=== PATIENT | male | born 1980 | race Caucasian/White ===

== ENCOUNTER 2020-06-28 15:48 | Emergency (ER) | payer SELFPAY ==
[~2020-06-28] VITALS: Ht 177.8 cm; Wt 100.0 kg
[2020-06-28 16:41] VITALS: BP 154/102
[2020-06-28] MEDS ORDERED: ALBU2.5V8 INH (16:44)
[2020-06-28] MEDS ORDERED: IPRA3AMP29 NEB (16:44)
--- NOTE | 2020-06-28 16:44 | PHYS DOC ---
General Adult EDM: Chief Complaint: MEDICATION REFILL HPI: HPI: Patient is a 40 year old male who presents with his staying at near rehab center and he needs a prescription for his albuterol nebulized treatment so he can take his treatments. He states they will not let him take his breathing treatments if he does not have a prescription for. He also would like a prescription for inhaler. He states currently he has no shortness of breath, chest pain, fever, cough, abdominal pain, nausea, vomiting, diarrhea, dizziness, headache. He denies any pain. Does have a history of asthma. Review of Systems: Review of Systems: Constitutional: Denies fever or chills. [] Eyes: Denies change in visual acuity. [] HENT: Denies nasal congestion or sore throat. [] Respiratory: Denies cough or shortness of breath. Needing prescription for asthma medication. [] Cardiovascular: Denies chest pain or edema. [] GI: Denies abdominal pain, nausea, vomiting, bloody stools or diarrhea. [] : Denies dysuria. [] Musculoskeletal: Denies back pain or joint pain. [] Integument: Denies rash. [] Neurologic: Denies headache, focal weakness or sensory changes. [] Endocrine: Denies polyuria or polydipsia. [] Lymphatic: Denies swollen glands. [] Psychiatric: Denies depression or anxiety. [] Heart Score: Risk Factors: Risk Factors: DM, Current or recent (<one month) smoker, HTN, HLP, family history of CAD, obesity. Risk Scores: Score 0 - 3: 2.5% MACE over next 6 weeks - Discharge Home Score 4 - 6: 20.3% MACE over next 6 weeks - Admit for Clinical Observation Score 7 - 10: 72.7% MACE over next 6 weeks - Early Invasive Strategies Physical Exam: PE: Constitutional: Well developed, well nourished, no acute distress, non-toxic appearance. [] HENT: Normocephalic, atraumatic, bilateral external ears normal, oropharynx moist, no oral exudates, nose normal. [] Eyes: PERRLA, EOMI, conjunctiva normal, no discharge. [] Neck: Normal range of motion, no tenderness, supple, no stridor. [] Cardiovascular:Heart rate regular rhythm, no murmur [] Lungs & Thorax: Bilateral breath sounds clear to auscultation [] Abdomen: Bowel sounds normal, soft, no tenderness, no masses, no pulsatile masses. [] Skin: Warm, dry, no erythema, no rash. [] Back: No tenderness, no CVA tenderness. [] Extremities: No tenderness, no cyanosis, no clubbing, ROM intact, no edema. [] Neurologic: Alert and oriented X 3, normal motor function, normal sensory function, no focal deficits noted. [] Psychologic: Affect normal, judgement normal, mood normal. Normal physical exam [] Current Patient Data: Vital Signs: Vital Signs Date Time Temp Pulse Resp B/P (MAP) Pulse Ox O2 Delivery O2 Flow Rate FiO2 06/28/20 16:26 98.3 83 20 154/102 (119) 95 Room Air 98.3 EKG: EKG: [] Radiology/Procedures: Radiology/Procedures: [] Course & Med Decision Making: Course & Med Decision Making Pertinent Labs and Imaging studies reviewed. (See chart for details) Alert and oriented x4. Ambulatory with a steady gait. Skin pink warm and dry. Lungs are clear to auscultation all lobes. Speaks in full complete sentences. Patient is in no respiratory distress. No extremity edema. Give patient a prescription for his albuterol nebulizer solution and a inhaler. [] Nadine Disclaimer: Nadine Disclaimer: This electronic medical record was generated, in whole or in part, using a voice recognition dictation system. Departure Departure Impression: Primary Impression: Medication refill Disposition: HOME, SELF-CARE Condition: STABLE Referrals: NO PCP (PCP) Patient Instructions: Medication Refill, Emergency Department Additional Instructions: Follow-up with a primary care provider if needed. Use the medication as prescribed. Scripts Albuterol Sulfate (PROAIR HFA INHALER) 8.5 Gm Hfa.aer.ad 1 PUFF INH PRN Q6HRS PRN for SHORTNESS OF BREATH, #1 INHALER 0 Refills Prov: FAN LEZAMA APRN 06/28/20 Ipratropium/Albuterol Sulfate (DUONEB 0.5-3(2.5) MG/3 ML) 3 Ml Ampul.neb 3 ML NEB QID, #30 EACH Prov: FAN LEZAMA ONLINE COMMUNICATIONS MANAGER 06/28/20 FAN LEZAMA APRN Jun 28, 2020 16:44
== END 2020-06-28 16:53 | disposition home or self-care (01) ==
LOC: ER 15:48
DX: J45.909 Unspecified asthma, uncomplicated (principal); Z76.0 Encounter for issue of repeat prescription
CPT/HCPCS: 99281

== ENCOUNTER 2020-07-05 15:47 | Emergency (ER) | payer SELFPAY ==
[~2020-07-05] VITALS: Ht 177.8 cm; Wt 104.5 kg
[~2020-07-05 15:47] MED LIST: ALBU2.5V8 INH; IPRA3AMP29 NEB
[2020-07-05 16:17] VITALS: BP 138/77
[2020-07-05] MEDS ORDERED: FLUT100D IH ×2 (16:56→17:20)
--- NOTE | 2020-07-05 16:57 | PHYS DOC ---
Past Medical History Past Medical History: Asthma Past Surgical History: No Surgical History Smoking Status: Current Some Day Smoker Alcohol Use: None General Adult EDM: Chief Complaint: MEDICATION REFILL HPI: HPI: Patient is a 40 year old male who presents with is currently enrolled at [facility] rehab and they will not let him take his Flovent unless he has a prescription for. This is the reason why he is here today. Patient currently denies shortness of breath, chest pain, headache, dizziness, dental pain, nausea, vomiting, diarrhea, abdominal pain, numbness or tingling, focal w eakness, headache. He has a history of asthma. Patient denies any pain at this time. Review of Systems: Review of Systems: Constitutional: Denies fever or chills. [] Eyes: Denies change in visual acuity. [] HENT: Denies nasal congestion or sore throat. [] Respiratory: Denies cough or shortness of breath. +Needing medication refill for asthma. [] Cardiovascular: Denies chest pain or edema. [] GI: Denies abdominal pain, nausea, vomiting, bloody stools or diarrhea. [] : Denies dysuria. [] Musculoskeletal: Denies back pain or joint pain. [] Integument: Denies rash. [] Neurologic: Denies headache, focal weakness or sensory changes. [] Endocrine: Denies polyuria or polydipsia. [] Lymphatic: Denies swollen glands. [] Psychiatric: Denies depression or anxiety. [] Heart Score: Risk Factors: Risk Factors: DM, Current or recent (<one month) smoker, HTN, HLP, family history of CAD, obesity. Risk Scores: Score 0 - 3: 2.5% MACE over next 6 weeks - Discharge Home Score 4 - 6: 20.3% MACE over next 6 weeks - Admit for Clinical Observation Score 7 - 10: 72.7% MACE over next 6 weeks - Early Invasive Strategies Allergies: Allergies: Allergies Coded Allergies Type Severity Reaction Last Updated Verified No Known Drug Allergies 06/28/20 No Physical Exam: PE: Constitutional: Well developed, well nourished, no acute distress, non-toxic appearance. [] HENT: Normocephalic, atraumatic, bilateral external ears normal, oropharynx moist, no oral exudates, nose normal. [] Eyes: PERRLA, EOMI, conjunctiva normal, no discharge. [] Neck: Normal range of motion, no tenderness, supple, no stridor. [] Cardiovascular:Heart rate regular rhythm, no murmur [] Lungs & Thorax: Bilateral breath sounds clear to auscultation [] Abdomen: Bowel sounds normal, soft, no tenderness, no masses, no pulsatile masses. [] Skin: Warm, dry, no erythema, no rash. [] Back: No tenderness, no CVA tenderness. [] Extremities: No tenderness, no cyanosis, no clubbing, ROM intact, no edema. [] Neurologic: Alert and oriented X 3, normal motor function, normal sensory function, no focal deficits noted. [] Psychologic: Affect normal, judgement normal, mood normal. Normal physical exam [] Current Patient Data: Vital Signs: Vital Signs Date Time Temp Pulse Resp B/P (MAP) Pulse Ox O2 Delivery O2 Flow Rate FiO2 07/05/20 16:17 98.1 92 138/77 (97) 96 Room Air 98.1 07/05/20 15:51 18 EKG: EKG: [] Radiology/Procedures: Radiology/Procedures: [] Course & Med Decision Making: Course & Med Decision Making Pertinent Labs and Imaging studies reviewed. (See chart for details) See HPI. Vital signs are within normal limits. Lungs are clear to auscultation in all lobes. Ambulatory with a steady gait. Alert and oriented x4. Skin pink warm and dry. Speaks in full complete sentences. Patient is given a prescription for Flovent. [] Dragon Disclaimer: Dragon Disclaimer: This electronic medical record was generated, in whole or in part, using a voice recognition dictation system. Departure Departure Impression: Primary Impression: Medication refill Disposition: 01 DC HOME SELF CARE/HOMELESS Condition: STABLE Referrals: NO PCP (PCP) Patient Instructions: Medication Refill, Emergency Department Additional Instructions: Follow-up with primary care provider if needed. Take medication as prescribed. Scripts Fluticasone Propionate (FLOVENT 100MCG DISKUS) 100 Mcg Disk.w.dev 2 PUFF IH BID, #1 INHALER 0 Refills Prov: FAN LEZAMA APRN 07/05/20 FAN LEZAMA APRN Jul 05, 2020 16:57
== END 2020-07-05 17:47 | disposition home or self-care (01) ==
LOC: ER 15:47
DX: J45.909 Unspecified asthma, uncomplicated (principal); Z76.0 Encounter for issue of repeat prescription
CPT/HCPCS: 99281

== ENCOUNTER 2020-07-11 19:00 | Emergency (ER) | payer SELFPAY ==
[~2020-07-11] VITALS: Ht 177.8 cm; Wt 109.1 kg
[~2020-07-11 19:00] MED LIST changes: +FLUT100D IH
[2020-07-11] MEDS ORDERED: FLUT12AE2 IH (20:08)
[2020-07-11] MEDS ORDERED: PRED50TA PO (20:08)
[2020-07-11] MEDS ORDERED: ALBU1.25 NEB (20:08)
--- NOTE | 2020-07-11 20:08 | PHYS DOC ---
Past Medical History Past Medical History: Asthma (ROBBY HELTON APRN) Past Surgical History: No Surgical History (ROBBY HELTON APRN) Smoking Status: Current Some Day Smoker Alcohol Use: None (ROBBY HELTON APRN) General Adult EDM: Chief Complaint: ASTHMA HPI: HPI: Patient is a 40 year old man with history of asthma who presents to the ED today for asthma exacerbation. Patient reports having increased shortness of breath for the last 2 hours. He states is currently at the rehab facility for drug use and and not allowing him to use his albuterol inhaler every 4 hours and as needed and is requesting a prescription for this. Patient denies any fever. Denies any chest pain (ROBBY HELTON APRN) Review of Systems: Review of Systems: Constitutional: Denies fever or chills. [] Eyes: Denies change in visual acuity. [] HENT: Denies nasal congestion or sore throat. [] Respiratory: Reports shortness of breath due to asthma. Denies cough Cardiovascular: Denies chest pain or edema. [] GI: Denies abdominal pain, nausea, vomiting, bloody stools or diarrhea. [] : Denies dysuria. [] Musculoskeletal: Denies back pain or joint pain. [] Integument: Denies rash. [] Neurologic: Denies headache, focal weakness or sensory changes. [] Endocrine: Denies polyuria or polydipsia. [] Lymphatic: Denies swollen glands. [] Psychiatric: Denies depression or anxiety. [] (ROBBY HELTON APRN) Heart Score: Risk Factors: Risk Factors: DM, Current or recent (<one month) smoker, HTN, HLP, family history of CAD, obesity. Risk Scores: Score 0 - 3: 2.5% MACE over next 6 weeks - Discharge Home Score 4 - 6: 20.3% MACE over next 6 weeks - Admit for Clinical Observation Score 7 - 10: 72.7% MACE over next 6 weeks - Early Invasive Strategies (ROBBY HELTON APRN) Current Medications: Current Medications Medications (Trade) Dose Ordered Sig/Elaine Start Time Stop Time Status Last Admin Dose Admin Albuterol/ Ipratropium (Duoneb) 3 ml 1X ONCE 07/11/20 20:15 07/11/20 20:16 (ROBBY HELTON APRN) Allergies: Allergies: Allergies Coded Allergies Type Severity Reaction Last Updated Verified No Known Drug Allergies 06/28/20 No (ROBBY HELTON APRN) Physical Exam: PE: Constitutional: Well developed, well nourished, no acute distress, non-toxic appearance. [] HENT: Normocephalic, atraumatic, bilateral external ears normal, oropharynx moist, no oral exudates, nose normal. [] Eyes: PERRLA, EOMI, conjunctiva normal, no discharge. [] Neck: Normal range of motion, no tenderness, supple, no stridor. [] Cardiovascular:Heart rate regular rhythm, no murmur [] Lungs & Thorax: Diffuse wheezing to posterior lung bases. Abdomen: Bowel sounds normal, soft, no tenderness, no masses, no pulsatile masses. [] Skin: Warm, dry, no erythema, no rash. [] Back: No tenderness, no CVA tenderness. [] Extremities: No tenderness, no cyanosis, no clubbing, ROM intact, no edema. [] Neurologic: Alert and oriented X 3, normal motor function, normal sensory function, no focal deficits noted. [] Psychologic: Affect normal, judgement normal, mood normal. [] (ROBBY HELTON APRN) Current Patient Data: Vital Signs: Vital Signs Date Time Temp Pulse Resp B/P (MAP) Pulse Ox O2 Delivery O2 Flow Rate FiO2 07/11/20 19:18 98.3 98 20 154/74 (100) 95 Room Air 98.3 (ROBBY HELTON APRN) EKG: EKG: [] (ROBBY HELTON APRN) Radiology/Procedures: Radiology/Procedures: [] (ROBBY HELTON APRN) Course & Med Decision Making: Course & Med Decision Making Pertinent Labs and Imaging studies reviewed. (See chart for details) This is a 40-year-old male patient with history of asthma presenting today complaining of shortness of breath for 2 hours. Patient is in a rehab facility and he states he is not being allowed to use his medications without a prescript ion. Prescriptions were written for patient. He was given a DuoNeb treatment prior to discharge. He was provided return precautions. 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 I was available for consultation as needed during the patient's visit in the emergency department. I agree with the clinical impression, plans and disposition. (AUDREY JUDGE MD) Nadine Disclaimer: Nadine Disclaimer: This electronic medical record was generated, in whole or in part, using a voice recognition dictation system. (ROBBY HELTON APRN) Departure Departure Impression: Primary Impression: Asthma exacerbation Qualified Codes: J45.21 - Mild intermittent asthma with (acute) exacerbation Additional Impression: Medication refill Disposition: DC HOME SELF CARE/HOMELESS Condition: STABLE Referrals: NO PCP (PCP) follow up with your doctor in 1-2 weeks Patient Instructions: Asthma, Adult Additional Instructions: Please use the prescribed medications as ordered. Please follow-up with your own doctor in 1 to 2 weeks, come back to the ED at any point symptoms worsen Scripts Fluticasone Propionate (FLOVENT 220MCG HFA) 12 Gm Aer.w.adap 1 INH IH BID, #1 INHALER Prov: ROBBY HELTON APRN 07/11/20 Albuterol Sulfate (ALBUTEROL SULFATE NEB SOLN) 1.25 Mg/3 Ml Vial.neb 1 VIAL NEB Q4HRS, #75 ML Prov: ROBBY HELTON APRN 07/11/20 Prednisone (PREDNISONE) 50 Mg Tablet 1 TAB PO DAILY, #5 TAB Prov: ROBBY HELTON APRN 07/11/20 ROBBY HELTON APRN Jul 11, 2020 20:08 AUDREY JUDGE MD Jul 11, 2020 22:25
[2020-07-11] MEDS ORDERED: IPRATRPIUM/ALBUTEROL 0.5/2.5MG 3 ML NEBU. NEB ONE (20:15)
[2020-07-11 20:19] VITALS: BP 137/74
[2020-07-11] MEDS ORDERED: predniSONE 20 MG TABLET PO ONE (20:30)
== END 2020-07-11 20:36 | disposition home or self-care (01) ==
LOC: ER 19:00
DX: J45.21 Mild intermittent asthma with (acute) exacerbation (principal); R06.02 Shortness of breath; J45.909 Unspecified asthma, uncomplicated; Z87.891 Personal history of nicotine dependence; Z76.0 Encounter for issue of repeat prescription
CPT/HCPCS: 94640; 99285; J7512